=== PATIENT | female | born 1985 | race Caucasian/White ===

== ENCOUNTER 2016-11-20 10:53 | Emergency (ER) | payer MEDICAID ==
[~2016-11-20] VITALS: Ht 162.6 cm; Wt 79.8 kg
[~2016-11-20 10:53] MED LIST: ADDERALL 20 MG20 MG PO; AMOXICILLIN 50500 MG PO; BUPROPION HCL300 MG PO; DILAUDID4 MG PO; HYDROCODONE1 TABLET PO; LORTAB 5/3251 TAB PO; MOTRIN 400MG.400 MG PO; OMNICEF 300 MG300 MG PO; PHENERGAN12.5 M3 PO; PHENTERMINE37.5 MG PO; PREDNISONE 20MG20 MG PO; PRENATAL PLUS1 TA1 PO; TOPIRAMATE100 MG PO; ZANTAC 150150 MG PO; ZOVIRAX51 TP
--- NOTE | 2016-11-20 11:14 | Urgent Treatment Center Report ---
See Addendum History of Present Issue Date/Time Seen by Provider 11/20/16 1114 Visit Reason Pt arrived:Walked Presenting Problem:PT STATES COUGH AND CONGESTION FOR ONE MONTH. STATES COUGH GOT BETTER FOR A WHILE BUT NEVER FULLY WENT AWAY. STATES IS GETTING WORSE NOW Location if Accident: Onset of symptoms date/time:/ or onset unknown for:MEDICAL HX UNKNOWN Have you (or family members/close friends) recently traveled outside the [facility]? N If Yes, where/when: Have you had exposure to infectious disease within the past month? TB? Other? Specify: c/o cough and chest congestion for approx one month. Started early october "as just a cough". Didn't think much of it. Rarely goes to doctor and tried to let it run its course. Took nearly 3 weeks to see improvement. "got much better but still didn't resolve". Over the last week, cough has been getting worse again. Chest tighter, harder to take deep breaths, mild SOA when taking daily walks. No fever, aches, chills. Exsmoker, socially 2 years ago. Source patient Exam Limitations no limitations ALLERGIES Coded Allergies: No Known Allergies (03/23/16) Home Medications Active Scripts HYDROCODONE/ACETAMINOPHEN (Lortab 5-325 MG Tablet) 1 TAB PO Q6HP PRN pain #20 TAB Prov: 03/23/16 Reported Medications Topiramate 100 MG PO NIGHTLY #30 BUPROPION HCL (Bupropion XL) 300 MG PO DAILY #30 Dextroamphetamine/Amphetamine (Adderall 20 MG Tablet) 30 MG PO DAILY History Medical History General CAD? No Angina: No CO: No Hypertension? No Hyperlipidemia? No CHF? No DVT? No PE? No COPD? No Asthma? No Anemia? No GERD? No Gastric ulcers? No GI Bleed? No Hernia? No Thyroid Problems? No Hypothyroidism? No CVA? No Seizures? No Diabetes? No Renal Insuffiency? No UTI? No Stones? No BPH? No GB Disease: No Nephritic Syndrome? No Asplenia? No Hepatitis? No Sickle Cell Disease? No Arthritis? No Migraines? No Cataracts? No Glaucoma? No MRSA? No HIV? No TB? No Anxiety? Yes Depression? No Cancer? No More? Yes Additional hx: ADD, headaches Immunization HX DT/Tetanus Unknown Flu Refused Pneumonia Refuses Surgical Hx Previous Surgery?Y C/S 2004 C/S 2009 TONSILS & ADENOIDS 2013 Social History Smoking Hx Smoker: Former Smoker Tobacco: No Packs/day < 1 Pack Alcohol Alcohol: No Review of Systems All Other Systems Reviewed and Negative Constitutional see HPI ENT denies: ear pain, nose discharge, nose congestion, throat pain. Respiratory cough, denies wheezing Cardiovascular see HPI, denies palpitations Gastrointestinal denies no symptoms reported Skin denies rash Psychiatric/Neurological denies headache Physical Exam Vital Signs Vital Signs Date Time Temp Pulse Resp B/P Pulse O2 O2 Flow FiO2 Ox Delivery Rate 11/20 1106 98.4 80 20 118/67 99 General Appearance normal appearance, no apparent distress Ear, Nose, Throat normal ENT inspection Neck non-tender, supple Respiratory Status Yes: trachea midline, chest symmetrical, non tender chest, non productive cough (worse w/ deep breath). No: respiratory distress, use of accessory muscles, pain on inspiration, pain on expiration, productive cough. Lung Sounds anterior: lungs clear. posterior: lungs clear. bilateral: lungs clear. Cardiovascular regular rate/rhythm, no peripheral edema, no murmur Neurologic alert, oriented x 3 Mental status normal mood/affect Skin normal color, warm/dry Lymphatic no adenopathy Medical Decision Making LABS/Meds/Orders Pt receiving controlled substance in ED? No Results/Orders Orders Procedure Date/time Status CHEST(2 VIEWS-NOT PORTABLE) 11/20 1132 Active XRAY/CT/US XRAY/CT/US XRAY chest XR interpretation by reviewed by me (esmer Crowley, DMITRI TOLBERT) Xray Results no acute findings Departure Departure Time of Disposition 1216 Disposition DC Home or Self Care(routine) Clinical Impression Primary Impression: Bronchitis Condition STABLE Referrals [facility] Follow up IMMEDIATELY for new or worsening symptoms OR no noticeable improvement over the next 48-72 hours. 911 for difficulty breathing. Patient Instructions DI for Acute Bronchitis Additional Instructions * start antibiotic today. Be sure to complete entire prescription even if feeling better. * Monitor Temp. FU if fevers begin at this point. * humidifier/vaporizer/hot steamy shower * Inhaler every 4-6 hours as needed like we discussed. If unsure how to use it, ask pharmacist to demonstrate how. Should help open airways and improve cough, wheezing, shortness of breath. * Mucinex during the day for your cough and cough suppressant only at night. Be sure to drink lots of water. Insurance may not cover a prescription of mucinex. Might be cheaper to get 400mg tablets and take 2 tablets morning, midday and evening all with lots of water. * Promethazine DM cough syrup will cause drowsiness. Use it only at night. No driving, operating machinery or caring for small children after taking it. * Start steroid today. Helps with inflammation therefore, cough and wheezing. Follow directions on package. Rvwd side effects. Pt reports they have taken them before. Discharge Counseling Counseled pt/family regarding diagnosis, test results, medications/RX, home care, follow up needs Prescriptions Current Visit Scripts Azithromycin (Zithromycin (Z-CELESTE) 250MG Tab) 250 MG PO DAILY #6 TAB TAKE TWO (2) TABLETS ON DAY 1, THEN ONE (1) TABLET DAY #2 THRU #5 ALBUTEROL (Proventil Hfa Inhaler) 1-2 PUFF IH Q4-6H PRN PRN SOA, wheezing #1 CAN PROMETHAZINE/DEXTROMETHORPHAN (Promethazine-Dm Syrup) 5-10 ML PO QHSP PRN cough #120 ML will cause drowsiness Prednisone (Prednisone 20MG) 20 MG PO BID #10 TAB at 1223
[2016-11-20] MEDS ORDERED: PROMETHAZINE D118 ML PO (12:23)
[2016-11-20] MEDS ORDERED: PROVENTIL0.09 MG/A1 IH (12:23)
[2016-11-20] MEDS ORDERED: PREDNISONE 20MG20 MG PO (12:23)
[2016-11-20] MEDS ORDERED: ZITHROMAX Z PA250 MG PO (12:23)
[2016-11-20 12:24] VITALS: BP 118/67
--- NOTE | 2016-11-20 14:33 | RADIOLOGY REPORT PS360 ---
CHEST(2 VIEWS-NOT PORTABLE) HISTORY: cough x 1 month, ex smoker 12 years ago, fam hx lung ca ORDERING PHYSICIAN: MARCIO MEYER APRN PATIENT AGE: 31 years COMPARISON: None available FINDINGS: The cardiomediastinal silhouette and pulmonary vascularity are within normal limits. No lobar consolidation or collapse. Nodular density is present in the left midlung at 8 mm indeterminate. Calcified granulomas present in the right upper lobe at 3 mm. Right lower lobe nodule which also appears to represent a calcified granulomas present in 5 mm. The remaining lungs are clear. No acute bony anomalies. IMPRESSION: 1. Indeterminate left midlung nodule of 8 mm. If there are no old exams for comparison then, chest CT may be of further value. This may represent a granuloma however, definite calcification cannot be confirmed by radiograph. 2. Old granulomatous disease.
== END 2016-11-20 12:27 | disposition home or self-care (01) ==
LOC: UTC 10:53
DX: J20.9 Acute bronchitis, unspecified (principal); Z87.891 Personal history of nicotine dependence; F41.9 Anxiety disorder, unspecified